=== PATIENT | female | born 1955 | race Caucasian/White ===

== ENCOUNTER 2021-08-31 10:16 | Emergency (ER) | payer MEDICARE ==
[2021-08-31 12:00] LABS: HEMOGLOBIN 12.4 gm/dl (12.3-15.3); RED BLOOD COUNT 4.01 M/UL (4.00-5.10)
== END 2021-08-31 16:41 | disposition home or self-care (01) ==
LOC: ER1 10:16
PROVIDERS: Physician Assistant
DX: R04.2 Hemoptysis (principal); F17.210 Nicotine dependence, cigarettes, uncomplicated; E11.9 Type 2 diabetes mellitus without complications; E78.5 Hyperlipidemia, unspecified; I10 Essential (primary) hypertension; Z88.5 Allergy status to narcotic agent; Z87.442 Personal history of urinary calculi
CPT/HCPCS: 71045; 80053; 85025; 99283; Q9967

== ENCOUNTER 2021-09-01 07:20 | Emergency (ER) | payer MEDICARE ==
[2021-09-01 09:16] LABS: HEMOGLOBIN 12.3 gm/dl (12.3-15.3); RED BLOOD COUNT 4.01 M/UL (4.00-5.10); WHITE BLOOD COUNT 7.6 K/UL (4.5-11.0)
== END 2021-09-01 14:50 | disposition home or self-care (01) ==
LOC: ER1 07:20
PROVIDERS: Physician Assistant
DX: R91.8 Other nonspecific abnormal finding of lung field (principal); D49.9 Neoplasm of unspecified behavior of unspecified site
CPT/HCPCS: 71260; 80048; 85025; 99285; Q9967

== ENCOUNTER → 2021-09-09 | Day surgery (SDC) | payer MEDICARE ==
[~2021-09-09] MED LIST: ASPIRIN81 MG PO; ATORVASTATIN CA80 MG PO; CITALOPRAM HBR20 MG PO; HYDROCODON-ACE1 EAC4 PO; LISINOPRIL5 MG PO; METFORMIN HCL1000 MG PO; METOPROLOL SUCC50 MG PO; NAPROXEN SODIU220 M1 PO; PLAVIX75 MG PO; PROVENTIL HFA6.7 GM INH; SYMBICORT 16010.2 GM INH
== END | disposition home or self-care (01) ==
LOC: OR 07:39
DX: C34.2 Malignant neoplasm of middle lobe, bronchus or lung (principal); C34.31 Malignant neoplasm of lower lobe, right bronchus or lung; C34.91 Malignant neoplasm of unspecified part of right bronchus or lung; J44.9 Chronic obstructive pulmonary disease, unspecified; F17.200 Nicotine dependence, unspecified, uncomplicated; E11.9 Type 2 diabetes mellitus without complications; I10 Essential (primary) hypertension; Z20.822 Contact with and (suspected) exposure to COVID-19; Z86.73 Personal history of transient ischemic attack (TIA), and cerebral infarction without residual deficits; Z88.5 Allergy status to narcotic agent; Z79.02 Long term (current) use of antithrombotics/antiplatelets; Z79.82 Long term (current) use of aspirin
CPT/HCPCS: 36415; 71045; 76000; 82962; 85610; 85730; 87015; 87070; 87077; 87116; 87186; 87205; 87206; 87252; J0330; J1100; J2001; J2405; J2704; J3010; J7030; J7120

== ENCOUNTER 2021-09-11 19:59 | Emergency (ER) | payer OTHER ==
[~2021-09-11] VITALS: Ht 165.1 cm; Wt 90.7 kg
[~2021-09-11 19:59] MED LIST changes: -ASPIRIN81 MG PO; -ATORVASTATIN CA80 MG PO; -HYDROCODON-ACE1 EAC4 PO; -METFORMIN HCL1000 MG PO; -PLAVIX75 MG PO; -PROVENTIL HFA6.7 GM INH
[2021-09-11 20:40] LABS: HEMOGLOBIN 13.2 gm/dl (12.3-15.3); RED BLOOD COUNT 4.18 M/UL (4.00-5.10); WHITE BLOOD COUNT 14.8 K/UL (4.5-11.0)
[2021-09-11 21:10] LABS: BUN/CREATININE RATIO 15 (0-10)
[2021-09-12 02:27] LABS: WHITE BLOOD COUNT 12.1 K/UL (4.5-11.0)
[2021-09-12 02:31] LABS: HEMOGLOBIN 10.4 gm/dl (12.3-15.3); RED BLOOD COUNT 3.44 M/UL (4.00-5.10)
[2021-09-12 02:49] LABS: BUN/CREATININE RATIO 12 (0-10)
[2021-09-13 05:12] LABS: HEMOGLOBIN 11.5 gm/dl (12.3-15.3); WHITE BLOOD COUNT 15.1 K/UL (4.5-11.0)
[2021-09-13 05:17] LABS: RED BLOOD COUNT 3.8 M/UL (4.00-5.10)
[2021-09-13 05:33] LABS: BUN/CREATININE RATIO 20 (0-10)
[2021-09-13] MEDS ORDERED: ATORVASTATIN CA80 MG PO (08:16)
[2021-09-13] MEDS ORDERED: ASPIRIN81 MG PO (08:16)
[2021-09-13] MEDS ORDERED: PLAVIX75 MG PO (08:17)
[2021-09-13] MEDS ORDERED: PROVENTIL HFA6.7 GM INH (08:18)
[2021-09-13] MEDS ORDERED: METFORMIN HCL1000 MG PO (08:19)
[2021-09-13] MEDS ORDERED: HYDROCODON-ACE1 EAC4 PO (18:16)
== END 2021-09-13 19:25 | disposition short-term general hospital (02) ==
LOC: ER1 19:59
PROVIDERS: Internal Medicine; Physician Assistant
DX: A41.9 Sepsis, unspecified organism (principal); J18.9 Pneumonia, unspecified organism; N13.2 Hydronephrosis with renal and ureteral calculous obstruction; E78.5 Hyperlipidemia, unspecified; E11.9 Type 2 diabetes mellitus without complications; I10 Essential (primary) hypertension; Z88.5 Allergy status to narcotic agent; Z86.73 Personal history of transient ischemic attack (TIA), and cerebral infarction without residual deficits; Z20.822 Contact with and (suspected) exposure to COVID-19; F17.210 Nicotine dependence, cigarettes, uncomplicated
CPT/HCPCS: 0240U; 36600; 71045; 80048; 80053; 80202; 81001; 82550; 82553; 82803; 82962; 83605; 83735; 83880; 84100; 84132; 84484; 85025; 85379; 85610; 85652; 85730; 86140; 87040; 87086; 93005; 96372; 96374; 96375; 96376; 99285; J0696; J1650; J2543; J2920; J3370; J7070; Q9967

== ENCOUNTER → 2021-10-13 | Outpatient (CLI) | payer OTHER ==
[~2021-10-13] MED LIST changes: +ASPIRIN81 MG PO; +ATORVASTATIN CA80 MG PO; +GLUCOPHAGE 500500 MG PO; +HYDROCODON-ACE1 EAC4 PO; +PLAVIX75 MG PO; +PROVENTIL HFA6.7 GM INH
== END ==
LOC: MRI 08:23
DX: Z12.89 Encounter for screening for malignant neoplasm of other sites (principal); C34.31 Malignant neoplasm of lower lobe, right bronchus or lung
CPT/HCPCS: 70553; A9577

== ENCOUNTER → 2021-10-18 | Day surgery (SDC) | payer OTHER | END | disposition home or self-care (01) | LOC: OR 06:45 | DX: C34.90 Malignant neoplasm of unspecified part of unspecified bronchus or lung (principal); J44.9 Chronic obstructive pulmonary disease, unspecified; I10 Essential (primary) hypertension; E78.5 Hyperlipidemia, unspecified; F17.210 Nicotine dependence, cigarettes, uncomplicated; E11.9 Type 2 diabetes mellitus without complications; Z88.5 Allergy status to narcotic agent; Z79.82 Long term (current) use of aspirin; Z79.84 Long term (current) use of oral hypoglycemic drugs; Z20.822 Contact with and (suspected) exposure to COVID-19 | CPT/HCPCS: 77001; 82962; C1769; C1788; J0690; J1100; J1642; J1885; J2001; J2405; J2704; J7030; J7040; J7120; U0002 ==

== ENCOUNTER → 2021-11-04 | Day surgery (SDC) | payer OTHER | END | disposition home or self-care (01) | LOC: OR 06:08 | DX: Z12.11 Encounter for screening for malignant neoplasm of colon (principal); J44.9 Chronic obstructive pulmonary disease, unspecified; F32.A Depression, unspecified; I10 Essential (primary) hypertension; E78.5 Hyperlipidemia, unspecified; E11.9 Type 2 diabetes mellitus without complications; F17.210 Nicotine dependence, cigarettes, uncomplicated; Z88.5 Allergy status to narcotic agent; Z79.82 Long term (current) use of aspirin; Z79.01 Long term (current) use of anticoagulants; Z79.84 Long term (current) use of oral hypoglycemic drugs; Z79.899 Other long term (current) drug therapy; Z20.822 Contact with and (suspected) exposure to COVID-19 | CPT/HCPCS: J2704 ==

== ENCOUNTER 2021-11-25 12:32 | Emergency (ER) | payer OTHER ==
[2021-11-25 13:23] LABS: HEMOGLOBIN 8.7 gm/dl (12.3-15.3); RED BLOOD COUNT 2.79 M/UL (4.00-5.10); WHITE BLOOD COUNT 2.5 K/UL (4.5-11.0)
[2021-11-25 13:53] LABS: BUN/CREATININE RATIO 24 (0-10)
== END 2021-11-25 14:10 | disposition left against medical advice (07) ==
LOC: ER1 12:32
PROVIDERS: Emergency Medicine
DX: H53.8 Other visual disturbances (principal); I63.9 Cerebral infarction, unspecified; D64.9 Anemia, unspecified; E11.9 Type 2 diabetes mellitus without complications; F17.200 Nicotine dependence, unspecified, uncomplicated; I10 Essential (primary) hypertension; Z85.118 Personal history of other malignant neoplasm of bronchus and lung
CPT/HCPCS: 70450; 71045; 80053; 82550; 82553; 82962; 84484; 85025; 85610; 85730; 93005; 99284; U0002

== ENCOUNTER → 2021-12-20 | Outpatient (CLI) | payer OTHER | LOC: CT 10:59 | DX: C34.2 Malignant neoplasm of middle lobe, bronchus or lung (principal); C34.31 Malignant neoplasm of lower lobe, right bronchus or lung; C90.00 Multiple myeloma not having achieved remission; R53.81 Other malaise; R91.8 Other nonspecific abnormal finding of lung field; E27.9 Disorder of adrenal gland, unspecified | CPT/HCPCS: 71260; Q9967 ==

== ENCOUNTER → 2021-12-27 | Outpatient (CLI) | payer OTHER | LOC: MAMO 11:00 | DX: Z12.31 Encounter for screening mammogram for malignant neoplasm of breast (principal) | CPT/HCPCS: 77063; 77067 ==

== ENCOUNTER → 2022-02-27 | Outpatient (CLI) | payer OTHER | LOC: CT 09:00 | DX: C34.2 Malignant neoplasm of middle lobe, bronchus or lung (principal); C34.31 Malignant neoplasm of lower lobe, right bronchus or lung; C90.00 Multiple myeloma not having achieved remission; R91.8 Other nonspecific abnormal finding of lung field | CPT/HCPCS: 71260; Q9967 ==